=== PATIENT | female | born 1960 | race African-American/Black ===

== ENCOUNTER 2017-11-30 21:09 | Inpatient (IN) | payer OTHER ==
[2017-11-30] MEDS: SOD CHLORIDE 0.9% 1,000 ML IV ×3 (21:41→23:45)
[2017-11-30] MEDS: LEVETIRACETAM 1000 MG (PMX) 100 ML IVPB (21:41)
[2017-11-30 21:42] LABS: ADD MAN DIFF? NO
[2017-11-30] MEDS: ONDANSETRON 4 MG INJ IV (21:43)
[2017-11-30 21:47] LABS: WHITE BLOOD COUNT 9.6 10^3/ul (4.8-10.8)
[2017-11-30 21:47] LABS: ABNORMAL IP MESSAGE 1; BASOPHILS % 0.2 % (0.0-2.0); HEMATOCRIT 37.3 % (37.0-47.0); HEMOGLOBIN 12.7 g/dl (12.0-16.0); LYMPHOCYTES # 1.1 10^3/ul (0.8-2.9); LYMPHOCYTES % 11.7 % (15.0-51.0); MEAN CORPUSCULAR HEMOGLOBIN 28.3 pg (29.0-33.0); MEAN CORPUSCULAR VOLUME 83.3 fl (82.0-101.0); MEAN PLATELET VOLUME 13.7 fl (7.4-10.4); MONOCYTE # 0.8 10^3/ul (0.3-0.9); MONOCYTES % 8.4 % (0.0-11.0); NEUTROPHIL # 7.6 10^3/ul (1.6-7.5); NEUTROPHILS % 79.3 % (39.0-77.0); PLATELET COUNT 180 10^3/UL (140-415); RED BLOOD COUNT 4.48 10^6/ul (4.20-5.40); RED CELL DISTRIBUTION WIDTH 12.4 % (11.5-14.5)
[2017-11-30 21:54] LABS: POSITIVE DIFF @See below
[2017-11-30] MEDS: NEOMYC/POLYMYX/BACIT 30 GM OINT TOP (21:59)
[2017-11-30 22:02] LABS: ALANINE AMINOTRANSFERASE 53 IU/L (13-69); ALBUMIN 3.9 g/dl (3.3-4.9); ALBUMIN/GLOBULIN RATIO 0.81; ALKALINE PHOSPHATASE 208 IU/L (42-121); ANION GAP 16 (8-16); ASPARTATE AMINO TRANSFERASE 50 IU/L (15-46); BILIRUBIN,INDIRECT 0.8 mg/dl (0-1.1); BILIRUBIN,TOTAL 0.8 mg/dl (0.2-1.3); BLOOD UREA NITROGEN 13 mg/dl (7-20); CALCIUM 10.1 mg/dl (8.4-10.2); CARBON DIOXIDE 26 mmol/L (21-31); CHLORIDE 99 mmol/L (97-110); CREATININE 0.47 mg/dl (0.44-1.00); GLUCOSE 84 mg/dl (70-220); LIPASE 31 U/L (23-300); POTASSIUM 3.8 mmol/L (3.5-5.1); SODIUM 137 mmol/L (135-144); TOTAL PROTEIN 8.7 g/dl (6.1-8.1)
[2017-11-30 22:14] LABS: TROPONIN-I 0.015 ng/ml (0.00-0.12)
[2017-11-30 22:57] LABS: ADD UMIC YES; UR ASCORBIC ACID NEGATIVE (NEGATIVE); UR BILIRUBIN (Dip) NEGATIVE (NEGATIVE); UR BLOOD (Dip) NEGATIVE (NEGATIVE); UR CLARITY CLEAR (CLEAR); UR COLOR YELLOW (YELLOW); UR GLUCOSE (Dip) NEGATIVE (NEGATIVE); UR KETONES (Dip) 1+ mg/dL (NEGATIVE); UR LEUKOCYTE ESTERASE (Dip) NEGATIVE Leu/ul (NEGATIVE); UR MUCUS FEW /HPF (NONE SEEN); UR NITRITE (Dip) NEGATIVE (NEGATIVE); UR RBC 1 /HPF (0-5); UR SPECIFIC GRAVITY (Dip) 1.013 (1.003-1.030); UR TOTAL PROTEIN (Dip) 1+ mg/dl (NEGATIVE); UR UROBILINOGEN (Dip) 1+ mg/dL (NEGATIVE); UR WBC 3 /HPF (0-5)
[2017-11-30] MEDS: PROPRANOLOL 20 MG TAB PO (23:38)
[2017-11-30 23:55] LABS: FREE T3 > 22.80 pg/ml (2.77-5.27)
[2017-11-30 23:57] LABS: FREE T4 (FREE THYROXINE) > 6.99 ng/dl (0.64-1.79)
[2017-12-01] MEDS ORDERED: NACL 0.9% 3 ML SYG IV
[2017-12-01 00:07] LABS: THYROID STIMULATING HORMONE < 0.015 MIU/L (0.465-4.680)
[2017-12-01] MEDS ORDERED: ONDANSETRON 4 MG INJ IV (01:00)
[2017-12-01] MEDS ORDERED: ACETAMINOPHEN 650MG/20.3ML CUP PO (01:00)
[2017-12-01] MEDS: PROPYLTHIOURACIL 50 MG TAB PO ×2 (01:05→16:01)
[2017-12-01] MEDS: SOD CHLORIDE 0.9% 1,000 ML IV ×3 (01:08→03:12)
[2017-12-01 02:52] LABS: B-TYPE NATRIURETIC PEPTIDE 5710 PG/ML (0-125)
[2017-12-01] MEDS: METHIMAZOLE 5 MG TAB PO ×2 (02:52→10:28)
[2017-12-01] MEDS: PROPRANOLOL 40 MG TAB PO (04:31)
[2017-12-01 05:09] LABS: ADD MAN DIFF? NO
[2017-12-01 05:15] LABS: WHITE BLOOD COUNT 7.3 10^3/ul (4.8-10.8)
[2017-12-01 05:15] LABS: ABNORMAL IP MESSAGE 1; BASOPHILS % 0.1 % (0.0-2.0); HEMATOCRIT 30.9 % (37.0-47.0); HEMOGLOBIN 10.4 g/dl (12.0-16.0); LYMPHOCYTES % 27.7 % (15.0-51.0); MEAN CORPUSCULAR HEMOGLOBIN 28.7 pg (29.0-33.0); MEAN CORPUSCULAR HGB CONC 33.7 g/dl (32.0-37.0); MEAN CORPUSCULAR VOLUME 85.4 fl (82.0-101.0); MEAN PLATELET VOLUME 13.8 fl (7.4-10.4); MONOCYTE # 0.9 10^3/ul (0.3-0.9); MONOCYTES % 12.1 % (0.0-11.0); NEUTROPHIL # 4.4 10^3/ul (1.6-7.5); NEUTROPHILS % 59.8 % (39.0-77.0); PLATELET COUNT 146 10^3/UL (140-415); RED BLOOD COUNT 3.62 10^6/ul (4.20-5.40); RED CELL DISTRIBUTION WIDTH 12.9 % (11.5-14.5)
[2017-12-01 05:49] LABS: POSITIVE DIFF @See below
[2017-12-01 05:52] LABS: ALANINE AMINOTRANSFERASE 52 IU/L (13-69); ALBUMIN/GLOBULIN RATIO 0.85; ALKALINE PHOSPHATASE 144 IU/L (42-121); ANION GAP 15 (8-16); ASPARTATE AMINO TRANSFERASE 48 IU/L (15-46); BILIRUBIN,INDIRECT 0.7 mg/dl (0-1.1); BILIRUBIN,TOTAL 0.7 mg/dl (0.2-1.3); BLOOD UREA NITROGEN 9 mg/dl (7-20); CALCIUM 9.5 mg/dl (8.4-10.2); CARBON DIOXIDE 23 mmol/L (21-31); CHLORIDE 108 mmol/L (97-110); CHOL/HDL RATIO 3.3 RATIO; CHOLESTEROL 77 mg/dl (100-200); CREATININE 0.41 mg/dl (0.44-1.00); GLUCOSE 61 mg/dl (70-220); HDL CHOLESTEROL 23 mg/dl (37-92); LDL CHOLESTEROL,CALCULATED 44 mg/dl; MAGNESIUM 1.6 mg/dl (1.7-2.5); POTASSIUM 3.5 mmol/L (3.5-5.1); SODIUM 142 mmol/L (135-144); TOTAL PROTEIN 6.5 g/dl (6.1-8.1); TRIGLYCERIDES 49 mg/dl (0-149)
[2017-12-01] MEDS: PANTOPRAZOLE 40 MG INJ IV (07:10)
[2017-12-01] MEDS ORDERED: DEXTROSE 50% 50 ML SYRINGE (07:29)
[2017-12-01] MEDS: DEXTROSE 50% 50 ML SYRINGE IV (07:34)
[2017-12-01] MEDS: DEXTROSE 5% 1,000 ML IV (08:46)
[2017-12-01] MEDS: LEVETIRACETAM 1000 MG (PMX) 100 ML IVPB ×2 (08:51→22:56)
[2017-12-01] MEDS: PROPRANOLOL 20 MG TAB PO ×3 (09:12→20:00)
[2017-12-01] MEDS: MAGNESIUM SULFATE 1 GM/D5W 100 ML IVPB (10:59)
[2017-12-01 11:42] LABS: AMPHETAMINE/METHAMPHETAMINE Negative (NEGATIVE); BARBITURATES Negative (NEGATIVE); BENZODIAZEPINES Negative (NEGATIVE); CANNABINOIDS Negative (NEGATIVE); COCAINE Negative (NEGATIVE); OPIATES Negative (NEGATIVE)
[2017-12-02] MEDS: PROPRANOLOL 20 MG TAB PO ×4 (01:34→20:08)
[2017-12-02 05:03] LABS: ADD MAN DIFF? NO
[2017-12-02 05:10] LABS: WHITE BLOOD COUNT 5.3 10^3/ul (4.8-10.8)
[2017-12-02 05:10] LABS: ABNORMAL IP MESSAGE 1; BASOPHILS % 0.6 % (0.0-2.0); EOSINOPHILS % 0.8 % (0.0-7.0); HEMATOCRIT 33.2 % (37.0-47.0); HEMOGLOBIN 11.2 g/dl (12.0-16.0); LYMPHOCYTES # 1.9 10^3/ul (0.8-2.9); LYMPHOCYTES % 36.7 % (15.0-51.0); MEAN CORPUSCULAR HEMOGLOBIN 28.4 pg (29.0-33.0); MEAN CORPUSCULAR HGB CONC 33.7 g/dl (32.0-37.0); MEAN CORPUSCULAR VOLUME 84.1 fl (82.0-101.0); MONOCYTE # 0.8 10^3/ul (0.3-0.9); MONOCYTES % 14.6 % (0.0-11.0); NEUTROPHIL # 2.5 10^3/ul (1.6-7.5); NEUTROPHILS % 47.1 % (39.0-77.0); PLATELET COUNT 154 10^3/UL (140-415); RED BLOOD COUNT 3.95 10^6/ul (4.20-5.40); RED CELL DISTRIBUTION WIDTH 12.7 % (11.5-14.5)
[2017-12-02] MEDS: PANTOPRAZOLE 40 MG INJ IV (05:27)
[2017-12-02 05:44] LABS: POSITIVE DIFF @See below
[2017-12-02 05:45] LABS: ALANINE AMINOTRANSFERASE 64 IU/L (13-69); ALBUMIN 3.1 g/dl (3.3-4.9); ALBUMIN/GLOBULIN RATIO 0.83; ALKALINE PHOSPHATASE 157 IU/L (42-121); ANION GAP 11 (8-16); ASPARTATE AMINO TRANSFERASE 43 IU/L (15-46); BILIRUBIN,INDIRECT 0.4 mg/dl (0-1.1); BILIRUBIN,TOTAL 0.4 mg/dl (0.2-1.3); BLOOD UREA NITROGEN 10 mg/dl (7-20); CALCIUM 10.1 mg/dl (8.4-10.2); CARBON DIOXIDE 25 mmol/L (21-31); CHLORIDE 110 mmol/L (97-110); CREATININE 0.55 mg/dl (0.44-1.00); GLUCOSE 115 mg/dl (70-220); POTASSIUM 3.4 mmol/L (3.5-5.1); SODIUM 143 mmol/L (135-144); TOTAL PROTEIN 6.8 g/dl (6.1-8.1)
[2017-12-02] MEDS: POTASSIUM CHLORIDE (SR) 20 MEQ TAB PO (08:09)
[2017-12-02] MEDS: METHIMAZOLE 5 MG TAB PO (09:04)
[2017-12-02] MEDS: LEVETIRACETAM 500 MG TAB PO ×2 (09:40→20:09)
[2017-12-03] MEDS: PROPRANOLOL 20 MG TAB PO ×5 (02:18→22:37)
[2017-12-03] MEDS: LORAZEPAM 2 MG INJ IV (04:52)
[2017-12-03 04:57] LABS: ADD MAN DIFF? NO
[2017-12-03 04:58] LABS: ABNORMAL IP MESSAGE 1; BASOPHILS % 0.4 % (0.0-2.0); EOSINOPHILS # 0.1 10^3/ul (0.0-0.5); EOSINOPHILS % 1.3 % (0.0-7.0); HEMATOCRIT 38.6 % (37.0-47.0); HEMOGLOBIN 12.9 g/dl (12.0-16.0); LYMPHOCYTES # 2.5 10^3/ul (0.8-2.9); LYMPHOCYTES % 31.7 % (15.0-51.0); MEAN CORPUSCULAR HGB CONC 33.4 g/dl (32.0-37.0); MEAN CORPUSCULAR VOLUME 83.9 fl (82.0-101.0); MEAN PLATELET VOLUME 13.5 fl (7.4-10.4); MONOCYTES % 12.1 % (0.0-11.0); NEUTROPHIL # 4.3 10^3/ul (1.6-7.5); NEUTROPHILS % 54.2 % (39.0-77.0); PLATELET COUNT 200 10^3/UL (140-415); RED CELL DISTRIBUTION WIDTH 12.8 % (11.5-14.5)
[2017-12-03 05:15] LABS: ALANINE AMINOTRANSFERASE 55 IU/L (13-69); ALBUMIN 3.5 g/dl (3.3-4.9); ALBUMIN/GLOBULIN RATIO 0.77; ALKALINE PHOSPHATASE 182 IU/L (42-121); ANION GAP 14 (8-16); ASPARTATE AMINO TRANSFERASE 29 IU/L (15-46); BILIRUBIN,INDIRECT 0.5 mg/dl (0-1.1); BILIRUBIN,TOTAL 0.5 mg/dl (0.2-1.3); BLOOD UREA NITROGEN 10 mg/dl (7-20); CALCIUM 10.1 mg/dl (8.4-10.2); CARBON DIOXIDE 27 mmol/L (21-31); CHLORIDE 104 mmol/L (97-110); CREATININE 0.51 mg/dl (0.44-1.00); GLUCOSE 116 mg/dl (70-220); POTASSIUM 3.8 mmol/L (3.5-5.1); SODIUM 141 mmol/L (135-144)
[2017-12-03 05:27] LABS: TROPONIN-I 0.015 ng/ml (0.00-0.12)
[2017-12-03] MEDS: METHIMAZOLE 5 MG TAB PO (05:30)
[2017-12-03 05:32] LABS: FREE T4 (FREE THYROXINE) 5.88 ng/dl (0.64-1.79)
[2017-12-03 05:41] LABS: POSITIVE DIFF @See below
[2017-12-03] MEDS: PANTOPRAZOLE 40 MG INJ IV (05:49)
[2017-12-03 06:02] LABS: THYROID STIMULATING HORMONE < 0.015 MIU/L (0.465-4.680)
[2017-12-03] MEDS: LEVETIRACETAM 500 MG TAB PO ×3 (09:30→22:39)
[2017-12-03] MEDS: TOPIRAMATE 25 MG TAB PO ×2 (20:16→22:38)
[2017-12-04] MEDS: PANTOPRAZOLE 40 MG INJ IV (05:24)
[2017-12-04] MEDS: PROPRANOLOL 20 MG TAB PO ×4 (05:24→22:07)
[2017-12-04] MEDS: LEVETIRACETAM 500 MG TAB PO ×2 (08:49→22:07)
[2017-12-04] MEDS: TOPIRAMATE 25 MG TAB PO ×2 (08:49→22:07)
[2017-12-04] MEDS: METHIMAZOLE 5 MG TAB PO (08:50)
[2017-12-05] MEDS: PROPRANOLOL 20 MG TAB PO ×4 (06:07→23:00)
[2017-12-05] MEDS: PANTOPRAZOLE 40 MG INJ IV (06:07)
[2017-12-05] MEDS: LEVETIRACETAM 500 MG TAB PO ×2 (08:58→09:00)
[2017-12-05] MEDS: TOPIRAMATE 25 MG TAB PO (08:59)
[2017-12-05] MEDS: METHIMAZOLE 5 MG TAB PO ×2 (08:59→09:00)
[2017-12-05] MEDS: LORAZEPAM 2 MG INJ IV (10:20)
[2017-12-05] MEDS: LEVETIRACETAM 1000 MG (PMX) 100 ML IVPB (15:44)
[2017-12-05] MEDS: TOPIRAMATE 100 MG TAB PO (21:00)
[2017-12-06] MEDS: LEVETIRACETAM 1000 MG (PMX) 100 ML IVPB (04:55)
[2017-12-06] MEDS: PROPRANOLOL 20 MG TAB PO ×4 (04:55→23:15)
[2017-12-06 05:07] LABS: ADD MAN DIFF? NO
[2017-12-06 05:10] LABS: ABNORMAL IP MESSAGE 1; BASOPHILS % 0.4 % (0.0-2.0); EOSINOPHILS # 0.1 10^3/ul (0.0-0.5); EOSINOPHILS % 2.6 % (0.0-7.0); HEMATOCRIT 37.7 % (37.0-47.0); HEMOGLOBIN 12.3 g/dl (12.0-16.0); LYMPHOCYTES # 2.3 10^3/ul (0.8-2.9); LYMPHOCYTES % 45.3 % (15.0-51.0); MEAN CORPUSCULAR HEMOGLOBIN 27.8 pg (29.0-33.0); MEAN CORPUSCULAR HGB CONC 32.6 g/dl (32.0-37.0); MEAN CORPUSCULAR VOLUME 85.1 fl (82.0-101.0); MEAN PLATELET VOLUME 13.8 fl (7.4-10.4); MONOCYTE # 0.7 10^3/ul (0.3-0.9); MONOCYTES % 13.1 % (0.0-11.0); NEUTROPHIL # 1.9 10^3/ul (1.6-7.5); NEUTROPHILS % 38.2 % (39.0-77.0); PLATELET COUNT 177 10^3/UL (140-415); RED BLOOD COUNT 4.43 10^6/ul (4.20-5.40); RED CELL DISTRIBUTION WIDTH 13.2 % (11.5-14.5)
[2017-12-06 05:19] LABS: POSITIVE DIFF @See below
[2017-12-06 05:38] LABS: ALANINE AMINOTRANSFERASE 41 IU/L (13-69); ALBUMIN 3.4 g/dl (3.3-4.9); ALBUMIN/GLOBULIN RATIO 0.79; ALKALINE PHOSPHATASE 170 IU/L (42-121); ANION GAP 14 (8-16); ASPARTATE AMINO TRANSFERASE 24 IU/L (15-46); BILIRUBIN,INDIRECT 0.5 mg/dl (0-1.1); BILIRUBIN,TOTAL 0.5 mg/dl (0.2-1.3); BLOOD UREA NITROGEN 17 mg/dl (7-20); CALCIUM 10.5 mg/dl (8.4-10.2); CARBON DIOXIDE 26 mmol/L (21-31); CHLORIDE 107 mmol/L (97-110); CREATININE 0.69 mg/dl (0.44-1.00); GLUCOSE 96 mg/dl (70-220); POTASSIUM 3.7 mmol/L (3.5-5.1); SODIUM 143 mmol/L (135-144); TOTAL PROTEIN 7.7 g/dl (6.1-8.1)
[2017-12-06 05:45] LABS: FREE T4 (FREE THYROXINE) 6.28 ng/dl (0.64-1.79)
[2017-12-06] MEDS: PANTOPRAZOLE 40 MG INJ IV (06:00)
[2017-12-06 06:09] LABS: THYROID STIMULATING HORMONE < 0.015 MIU/L (0.465-4.680)
[2017-12-06] MEDS: METHIMAZOLE 5 MG TAB PO (08:50)
[2017-12-06] MEDS: TOPIRAMATE 100 MG TAB PO ×2 (08:51→20:32)
[2017-12-06 13:47] LABS: PROCALCITONIN <0.10 ng/mL (<0.10)
[2017-12-06] MEDS: LEVETIRACETAM 500 MG TAB PO ×2 (13:52→20:33)
[2017-12-07] MEDS: PANTOPRAZOLE 40 MG INJ IV (05:55)
[2017-12-07] MEDS: PROPRANOLOL 20 MG TAB PO ×4 (05:56→22:40)
[2017-12-07] MEDS: LEVETIRACETAM 500 MG TAB PO ×2 (08:06→22:36)
[2017-12-07] MEDS: TOPIRAMATE 100 MG TAB PO ×2 (08:06→22:36)
[2017-12-07] MEDS: METHIMAZOLE 5 MG TAB PO (08:06)
[2017-12-08] MEDS: PANTOPRAZOLE 40 MG INJ IV (06:00)
[2017-12-08] MEDS: PROPRANOLOL 20 MG TAB PO ×2 (06:10→11:17)
[2017-12-08] MEDS: TOPIRAMATE 100 MG TAB PO (08:32)
[2017-12-08] MEDS: LEVETIRACETAM 500 MG TAB PO (08:33)
[2017-12-08] MEDS: METHIMAZOLE 5 MG TAB PO (08:33)
== END 2017-12-08 17:51 | disposition home health service (06) | DRG 100 ==
LOC: ICU 23:24 → PP2 12-02 11:20 → E/R 21:09 → ICU 12-01 09:39
DX: G40.909 Epilepsy, unspecified, not intractable, without status epilepticus (principal); E05.21 Thyrotoxicosis with toxic multinodular goiter with thyrotoxic crisis or storm; I10 Essential (primary) hypertension; E87.6 Hypokalemia; F32.9 Major depressive disorder, single episode, unspecified; F41.9 Anxiety disorder, unspecified; E86.0 Dehydration; K40.20 Bilateral inguinal hernia, without obstruction or gangrene, not specified as recurrent; D27.1 Benign neoplasm of left ovary; Z91.14 Patient's other noncompliance with medication regimen
CPT/HCPCS: 36415; 70450; 71045; 76536; 80053; 80061; 80307; 81001; 82962; 83036; 83690; 83735; 83880; 84145; 84439; 84443; 84481; 84484; 85025; 87040; 87081; 87086; 93005; 93306; 95819; 96374; 96375; 99285-25